=== PATIENT | female | born 1950 | race Caucasian/White ===

== ENCOUNTER 2024-03-12 10:56 | Emergency (ER) | payer MEDICARE, SELFPAY ==
[2024-03-12 10:59] VITALS: BP 154/68; PULSE 70; RESP 16; TEMP 36.7; O2SAT 96
--- NOTE | 2024-03-12 11:00 | DI.RAD_ITS ---
Exam(s) XR FOOT LT COMPLETE EXAM: XR FOOT LT COMPLETE CLINICAL HISTORY: L great toe pain s/p fall. TECHNIQUE: 2D digital imaging was performed. COMPARISON: No exams were available for comparison FINDINGS: 3 views There is a minimally displaced transverse fracture at the mid aspect of the distal phalanx of the gre at toe. No radiopaque foreign body. No osseous lesions evident. The fracture does not appear to ex tend into the interphalangeal joint. No other fractures identified in the foot. Moderate size infer ior calcaneal spur noted. Lisfranc joint appears unremarkable. IMPRESSION: Transverse fracture of the distal phalanx of the great toe with minimal displacement. No obvious art icular involvement. DATA REPOSITORY: RADIATION DOSE DELIVERED:
--- NOTE | 2024-03-12 11:16 | ED.GENADUL_ITS ---
Discharge Plan Discharge Details Chief Complaint: Orthopedic Primary Care Provider: Unknown,Unknown ED Provider: Frances Peña Home Meds and New Rx's Prescriptions: No Action atorvastatin 10 mg tablet 10 mg PO DAILY hydrochlorothiazide 12.5 mg tablet 12.5 mg PO DAILY HPI General Date/Time Provider Initiated Documentation: 03/12/24 10:58 . HPI Narrative: Adrianne is a 73-year-old female with history of hypertension and hyperlipidemia who presents to the emergency department today for evaluation of left great toe pain. She reports that last night she was running in the rain and caught her toe on the underside of a step, causing her to fall. She has been experiencing pain to the great toe with flexion of IP joint. She denies other injuries. Denies history of immunocompromise or diabetes. He is visiting from [place], has a primary care provider she can follow-up with next week after she returns home from her weeklong vacation. She is accompanied by her [place]. Related Data Home Medications Medication Instructions Recorded Confirmed atorvastatin 10 mg tablet 10 mg PO DAILY 03/12/24 03/12/24 hydrochlorothiazide 12.5 mg tablet 12.5 mg PO DAILY 03/12/24 03/12/24 Allergies Allergy/AdvReac Type Severity Reaction Status Date / Time acetaminophen [From Percocet] AdvReac Mild Nausea Verified 03/12/24 11:04 adhesive tape AdvReac Mild Skin Rash Verified 03/12/24 11:04 oxycodone [From Percocet] AdvReac Mild Nausea Verified 03/12/24 11:04 General Stated Complaint: Orthopedic VICENTE: 4 Review of Systems Narrative: see HPI Exam Const General: cooperative, healthy appearing, comfortable and no acute distress Nutritional Appearance: average body habitus Resp Effort & Inspection: normal respiratory effort and able to speak in complete sentences Skin General skin exam: no rashes or lesions noted Wounds: no wounds Extrem Right lower extremity: normal to inspection Left lower extremity: foot Details: normal capillary refill, tenderness Location: of the great toe Location: at the IP joint and edema Location: of the great toe Location: at the proximal phalanx and at the distal phalanx; no abrasions, no lacerations, no crepitus and no foreign bodies Course Vital Signs Vital signs: Vital Signs Temperature 36.7 C 03/12/24 10:59 Pulse 70 03/12/24 10:59 Respiratory Rate 16 03/12/24 10:59 Blood Pressure 154/68 H 03/12/24 10:59 Pulse Oximetry 96 03/12/24 10:59 Temperature 36.7 C 03/12/24 10:59 Pulse 70 03/12/24 10:59 Respiratory Rate 16 03/12/24 10:59 Blood Pressure 154/68 H 03/12/24 10:59 Pulse Oximetry 96 03/12/24 10:59 Oxygen Delivery Method Room Air 03/12/24 10:59 Oxygen Flow Rate 0 03/12/24 10:59 Pain Level 5 03/12/24 10:59 Medical Decision Making Adrianne is a 73-year-old female with history of hypertension and hyperlipidemia who presents to the emergency department today for evaluation of left great toe pain. She reports that last night she was running in the rain and caught her toe on the underside of a step, causing her to fall. She has been experiencing pain to the great toe with flexion of IP joint. She denies other injuries. Denies history of immunocompromise or diabetes. He is visiting from [place], has a primary care provider she can follow-up with next week after she returns home from her weeklong vacation. She is accompanied by her [place]. Physical exam remarkable for redness to the distal and proximal phalanges of the left great toe. Decreased range of motion, unable to flex interphalangeal joint. No pain on palpation of MTP joint. Sensation intact distally. She is able to ambulate, but with a limping gait. No forefoot/midfoot or other toe pain with palpation. Distal pulses intact. No lesions/abrasions/skin tears. DDx includes was not limited to sprain, fracture I independently interpreted the following test: Left foot x-ray, fracture of distal phalanx noted. Radiologist interpretation agrees with this. While in the emergency department Adrianne was given ice for comfort. Syed taping and hard soled shoe provided. Reviewed discharge instructions with patient, including plan to follow-up with orthopedics/podiatry for management of fracture. Recommend Tylenol for pain control, as well as RICE. Imaging Data Radiologic Study: Radiologist's impression: PROCEDURE INFORMATION: Exam: XR Left Foot Exam date and time: 03/12/2024 11:35 AM Age: 73 years old Clinical indication: Other: Left great toe pain S/P fall TE CHNIQUE: Imaging protocol: Radiologic exam of the left foot. Views: 3 or more views. COMPARISON: No relevant prior studies available. FINDINGS: Bones/joints: There is a transverse, extra-articular great toe distal phalanx fracture. Fragments are mildly displaced. No dislocation. Soft tissues: Great toe soft tissue swelling. IMPRESSION: Great toe distal phalanx fracture. Quality:SDOH Health Related Social Needs: No Data to Display PFSH Social History Smoking/Tobacco Use Status: Never Smoking risk assessment performed?: Yes Alcohol Intake: current Alcohol Intake frequency: a few times a month Drug use: Never Substance use type: does not use
--- NOTE | 2024-03-12 12:37 | DI.VRAD_ITS ---
PROCEDURE INFORMATION: Exam: XR Left Foot Exam date and time: 03/12/2024 11:35 AM Age: 73 years old Clinical indication: Other: Left great toe pain S/P fall TECHNIQUE: Imaging protocol: Radiologic exam of the left foot. Views: 3 or more views. COMPARISON: No relevant prior studies available. FINDINGS: Bones/joints: There is a transverse, extra-articular great toe distal phalanx fracture. Fragments are mildly displaced. No dislocation. Soft tissues: Great toe soft tissue swelling. IMPRESSION: Great toe distal phalanx fracture. Dictated and Authenticated by: Hailey Vu MD. Ordering:ZAKIA Daniels MD
== END 2024-03-12 13:09 | disposition home or self-care (01) ==
PROVIDERS: Emergency Provider Nurse Practitioner Family
DX: W10.9XXA Fall (on) (from) unspecified stairs and steps, initial encounter; I10 Essential (primary) hypertension; E78.5 Hyperlipidemia, unspecified; Z79.899 Other long term (current) drug therapy; S92.422A Displaced fracture of distal phalanx of left great toe, initial encounter for closed fracture
CPT/HCPCS: 99283; 73630; 99284